=== PATIENT | female | born 1950 | race Caucasian/White ===

== ENCOUNTER 2022-07-17 11:48 | Outpatient (CLI) | payer MEDICARE ==
[2022-07-17 12:15] LABS: ALT (SGPT) 14 U/L (8-55); AST (SGOT) 24 U/L (5-34); Albumin 4.6 g/dL (3.4-4.8); Alkaline Phosphatase 89 U/L (40-110); Anion Gap 14 mmol/L (10-20); BUN (Urea Nitrogen) 10 mg/dL (9.8-20.1); Bilirubin, Total 0.4 mg/dL (0.2-1.2); Calc. Creatinine Clearance 0 mL/min (70-130); Calcium 10.1 mg/dL (7.8-10.44); Carbon Dioxide 27 mmol/L (23-31); Cardiac Risk 2.6 (Less than 4.5); Chloride 106 mmol/L (98-107); Cholesterol 188 mg/dl (< 200 Desired); Estimated GFR 70; Glucose 95 mg/dL (83-110); HDL Cholesterol 73 mg/dL (>60 Neg Risk); LDL Cholesterol, Calculated 94 mg/dL; Potassium 4.2 mmol/L (3.5-5.1); Protein, Total 7.6 g/dL (5.8-8.1); Sodium 143 mmol/L (136-145); Triglycerides 105 mg/dL (Less than 150)
== END 2022-07-17 11:49 | disposition home or self-care (01) ==
LOC: MADLABBHPM 11:48 → MADLAB 11:49
PROVIDERS: ATTEND Family Medicine
DX: E03.9 Hypothyroidism, unspecified (principal); E78.5 Hyperlipidemia, unspecified
CPT/HCPCS: 80053; 80061; 84443

== ENCOUNTER 2022-10-24 14:04 | Outpatient (CLI) | payer MEDICARE | END 2022-10-24 14:05 | disposition home or self-care (01) | LOC: MADRAD 14:04 | PROVIDERS: ATTEND Family Medicine | DX: M25.561 Pain in right knee (principal) ==

== ENCOUNTER 2023-09-04 09:22 | Emergency (ER) | payer MEDICARE ==
[2023-09-04 10:39] LABS: Hematocrit 42.4 % (36.0-47.0); Hemoglobin 13.2 g/dL (12.0-16.0); INR-International Normal Ratio 1.1; Manual Diff?? YES; Mean Corpuscular HGB CONC 31.1 g/dL (32.0-36.0); Mean Corpuscular Hemoglobin 37.6 pg (27.0-31.0); Mean Corpuscular Volume 88.7 fl (78.0-98.0); Mean Platelet Volume 9.5 fL (7.4-10.4); PTT 25.7 sec (22.9-36.1); Platelet Count 196 10x3/uL (130-400); Prothrombin Time 13.9 sec (12.0-14.7); RBC Distribution Width 11.9 % (11.5-14.5); Red Blood Cell (RBC) Count 4.77 mill/uL (4.20-5.40); White Blood Cell (WBC) Count 13.9 10x3/uL (4.8-10.8)
[2023-09-04 10:40] LABS: Band 2 % (5-11); Lymphocytes 14 % (21-51); MDiff Complete? YES; Monocytes 8 % (0-10); Neutrophil 76 % (42-75); Platelet Adequacy Comment Appears Adequate; RBC Morph Comment Within Normal Limits
[2023-09-04 10:47] LABS: ALT (SGPT) 20 U/L (8-55); AST (SGOT) 44 U/L (5-34); Albumin 4.6 g/dL (3.4-4.8); Alkaline Phosphatase 85 U/L (40-110); Anion Gap 17 mmol/L (10-20); BUN (Urea Nitrogen) 18 mg/dL (9.8-20.1); Bilirubin, Total 0.8 mg/dL (0.2-1.2); CK (CPK) 1413 U/L (29-168); Calc. Creatinine Clearance 0 mL/min (70-130); Calcium 9.7 mg/dL (7.8-10.44); Carbon Dioxide 21 mmol/L (23-31); Chloride 109 mmol/L (98-107); Estimated GFR 76; Globulin 2.8 g/dL (2.4-3.5); Glucose 129 mg/dL (83-110); Potassium 3.2 mmol/L (3.5-5.1); Protein, Total 7.4 g/dL (5.8-8.1); Sodium 144 mmol/L (136-145)
[2023-09-04 10:53] LABS: Troponin I Less than 0.010 ng/mL (< 0.028)
[2023-09-04] MEDS ORDERED: Sodium Chloride 0.9% 1,000 ML ONE (11:24)
[2023-09-04] MEDS ORDERED: Potassium Chloride 20 MEQ TAB ONE (11:53)
[2023-09-04] MEDS ORDERED: Sodium Chloride 0.9% 100 ML ONE (11:53)
[2023-09-04] MEDS ORDERED: cefTRIAXone (ROCEPHIN) 1 GM VIAL ONE (11:53)
== END 2023-09-04 13:30 | disposition short-term general hospital (02) ==
LOC: MADERS 09:22
DX: M62.82 Rhabdomyolysis (principal); E03.9 Hypothyroidism, unspecified; I10 Essential (primary) hypertension; E78.5 Hyperlipidemia, unspecified; Z79.899 Other long term (current) drug therapy
CPT/HCPCS: 70450; 71046; 80053; 82550; 84484; 85025; 85610; 85730; 93005; 96361; 96374; 99285; J0696; J3490; J7050